=== PATIENT | male | born 1970 | race Caucasian/White ===

== ENCOUNTER 2017-02-20 07:32 | Emergency (ER) | payer OTHER ==
[~2017-02-20] VITALS: Ht 182.9 cm; Wt 107.0 kg
[2017-02-20] MEDS ORDERED: benzonatate 100mg capsule PO ONE (09:10)
[2017-02-20] MEDS ORDERED: pseudoephedrine 30mg tablet PO ONE (09:10)
[2017-02-20] MEDS ORDERED: acetaminophen 325mg tablet PO ONE (09:45)
[2017-02-20] MEDS ORDERED: BENZ-16 PO (10:14)
[2017-02-20 10:36] VITALS: BP 128/83
== END 2017-02-20 10:38 | disposition home or self-care (01) ==
LOC: ER 07:37
DX: J06.9 Acute upper respiratory infection, unspecified (principal); R05 Cough; R50.9 Fever, unspecified; G47.30 Sleep apnea, unspecified; Z88.5 Allergy status to narcotic agent
CPT/HCPCS: 71046; 87502; 87503; 99285